=== PATIENT | male | born 1975 | race Caucasian/White ===

== ENCOUNTER → 2016-05-14 | Outpatient (CLI) | payer BC ==
[2016-05-14 14:44] LABS: ALT 43 U/L (21-72); AST 21 U/L (17-59); Alkaline Phosphatase 64 U/L (38-126); Anion Gap 12 mmol/L; Blood Urea Nitrogen 17 mg/dL (9-20); Calcium 9.5 mg/dL (8.4-10.2); Carbon Dioxide 23 mmol/L (22-30); Chloride 106 mmol/L (98-107); Cholesterol 242 mg/dL (<200); Glucose 110 mg/dL (74-99); HDL Cholesterol 37 mg/dL (40-60); Non-African American GFR(MDRD) >60 (>60 ml/min/1.73 sqM); Potassium 4.1 mmol/L (3.5-5.1); Sodium 141 mmol/L (137-145); Total Bilirubin 0.8 mg/dL (0.2-1.3); Total Protein 7.3 g/dL (6.3-8.2); Triglycerides 335 mg/dL (<150)
== END ==
LOC: LABWHC1 13:53
PROVIDERS: ATTEND Internal Medicine Endocrinology, Diabetes & Metabolism
DX: E10.65 Type 1 diabetes mellitus with hyperglycemia (principal)
CPT/HCPCS: 36415; 80053; 80061; 82043; 83519; 84681

== ENCOUNTER → 2016-10-12 | Outpatient (CLI) | payer BC ==
[2016-10-12 07:27] LABS: ALT 65 U/L (21-72); AST 24 U/L (17-59); Alkaline Phosphatase 68 U/L (38-126); Anion Gap 11 mmol/L; Blood Urea Nitrogen 17 mg/dL (9-20); Calcium 9.9 mg/dL (8.4-10.2); Carbon Dioxide 26 mmol/L (22-30); Chloride 102 mmol/L (98-107); Cholesterol 287 mg/dL (<200); Glucose 120 mg/dL (74-99); HDL Cholesterol 41 mg/dL (40-60); Non-African American GFR(MDRD) >60 (>60 ml/min/1.73 sqM); Potassium 4.6 mmol/L (3.5-5.1); Sodium 139 mmol/L (137-145); Total Bilirubin 0.6 mg/dL (0.2-1.3); Total Protein 7.5 g/dL (6.3-8.2)
[2016-10-13 01:17] LABS: Urine Creatinine 211.1 mg/dL
== END | disposition home or self-care (01) ==
LOC: LABWHC1 06:48
PROVIDERS: ATTEND Internal Medicine Endocrinology, Diabetes & Metabolism
DX: E10.65 Type 1 diabetes mellitus with hyperglycemia (principal)
CPT/HCPCS: 36415; 80053; 80061; 82043; 82570

== ENCOUNTER 2017-01-08 20:11 | Emergency (ER) | payer BC, OTHER ==
--- NOTE | 2017-01-08 20:43 | ED ---
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 Started having pain to his left knee yesterday. When he awakened this morning he was tender warm swollen and very painful. Otherwise no fever does not have chills. - Related Data Home Medications Medication Instructions Recorded Confirmed HYDROcodone/APAP 10-325MG [[place] 1 tab PO TID PRN 10/09/15 01/08/17 10-325] Previous Rx's Medication Instructions Recorded INSULIN LISPRO (HumaLOG) [humaLOG] 0 unit SQ ACHS #1 vial 10/10/15 Insulin Glargine [Lantus] 25 unit SQ HS #1 vial 10/10/15 Cephalexin [Keflex] 500 mg PO Q6HR #40 cap 01/08/17 Allergies Allergy/AdvReac Type Severity Reaction Status Date / Time No Known Allergies Allergy Verified 01/08/17 20:17 Review of Systems ROS Statement: Those systems with pertinent positive or pertinent negative responses have been documented in the HPI. review of systems no other complaints other than pain to his left knee. He does have chronic back pain for which takes Moro. All systems reviewed. Past medical problemsHypertension, hyperlipidemia. He surgeries or hernia repair, bilateral eye muscle repair here surgery. Family history not cooperative. No known ALLERGIES. Nonsmoker. Occasional alcohol use. ROS Other: All systems not noted in ROS Statement are negative. Past Medical History Past Medical History: Hyperlipidemia, Hypertension Additional Past Medical History / Comment(s): Pt just found out he has elevated blood sugar., back pain History of Any Multi-Drug Resistant Organisms: None Reported Past Surgical History: Ear Surgery, Hernia Repair Additional Past Surgical History / Comment(s): bilateral eye muscle surgery, bilateral myringotomies with tubes, R inguinal hernia repair. Past Anesthesia/Blood Transfusion Reactions: No Reported Reaction Past Psychological History: No Psychological Hx Reported Smoking Status: Never smoker - Past Family History Father Family Medical History: Hyperlipidemia Additional Family Medical History / Comment(s): Father is 72 yrs old. Mother Family Medical History: COPD Additional Family Medical History / Comment(s): Bladder problems. Mother is 67yrs old. General Exam - General Exam Comments Initial Comments: physical examination of the patient finds; temperature 97.9 ,pulse 93, respiratory rate 18 pulse, ox 97% room, air blood pressure 144/92. Patient's lungs clear to auscultation heart no murmur, abdomen benign. Lower extremities finds left knee has tenderness swelling and warmth. Range of motion is decreased significantly. Pain with varus, valgus and drawer testing. Neurovascular status of foot is intact. Limitations: no limitations Course Vital Signs 01/08/17 20:13 Temperature 97.9 F Pulse Rate 93 Respiratory 18 Rate Blood Pressure 144/92 O2 Sat by Pulse 97 Oximetry Medical Decision Making - Medical Decision Making Medical decision making; x-ray of the left knee was done and reviewed by radiologist and reported findings are there is anterior infrapatellar soft tissue swelling. No significant knee joint effusion. No acute fracture, subluxation or dislocation. Impression anterior infrapatellar soft tissue swelling could relate to soft tissue contusion, cellulitis or other nonspecific edema. No acute osseous abnormality is seen as read by Dr. Lynn The patient will be placed on cephalexin 500 4 times a day. With warm compresses and elevation. Advised to follow-up with family physician if not improving in the next 2-3 days. Advised to use ibuprofen in addition to the pain medication as available which he takes for his bad back. Disposition Clinical Impression: Pain and swelling of left knee Disposition: HOME SELF-CARE Condition: Fair Instructions: Knee Sprain (ED) Additional Instructions: take cephalexin 504 times daily for 10 days. Ice elevate rest your knee. If not improving after 48 hours follow-up with family physician. Continue with Moro for pain as well as ibuprofen 600 for inflammation and breakthrough pain. Prescriptions: Cephalexin [Keflex] 500 mg PO Q6HR #40 cap Referrals: Anjana Mukherjee MD [Primary Care Provider] - 1-2 days Time of Disposition: 21:32
--- NOTE | 2017-01-08 20:57 | XR ---
EXAMINATION TYPE: XR knee complete LT DATE OF EXAM: 01/08/2017 COMPARISON: NONE HISTORY: 41-year-old male with knee pain and swelling TECHNIQUE: 3 views FINDINGS: There is anterior infrapatellar soft tissue swelling. No significant knee joint effusion. No acute fr acture, subluxation, or dislocation. IMPRESSION: Anterior infrapatellar soft tissue swelling could relate to soft tissue contusion, cellulitis, or oth er nonspecific edema. No acute osseous abnormality seen.
[2017-01-08] MEDS ORDERED: CEPHALEXIN 500MG STARTER PACK 4 CAP BTL PO STA (21:29)
[2017-01-08 21:47] VITALS: BP 156/91; PULSE 81; RESP 19; TEMP 100.8
== END 2017-01-08 21:47 | disposition home or self-care (01) ==
LOC: EC 20:11
DX: M25.562 Pain in left knee (principal); M79.89 Other specified soft tissue disorders
CPT/HCPCS: 99284

== ENCOUNTER 2017-01-11 01:01 | Emergency (ER) | payer BC, OTHER ==
[2017-01-11 01:05] VITALS: BP 166/90; PULSE 81; RESP 20; TEMP 98.4
[2017-01-11] MEDS ORDERED: cefTRIAXone 1,000 MG VIAL (IM USE) IM STA (01:15)
[2017-01-11] MEDS ORDERED: SULFAMETHOX-TMP 800-160MG 1 EACH TAB PO STA (01:15)
--- NOTE | 2017-01-11 01:18 | ED ---
General Adult HPI - General Chief complaint: Skin/Abscess/Foreign Body Stated complaint: Knee pain Time Seen by Provider: 01/11/17 01:09 Source: patient, family, RN notes reviewed Mode of arrival: ambulatory Limitations: no limitations - History of Present Illness Initial comments: 41-year-old male presents to the emergency Department chief complaint of left knee redness. Patient has had this for the past 3 days. He came here on Tuesday was started on Keflex. He states been taking it. He noticed the redness has extended down the leg but is not traveling up. He states he is more motion of the needing there are a few days ago. He denies any fever chills. There's been no nausea or vomiting. There is due to the fact that it was still red states that they should be seen.Patient denies any recent fever, chills, shortness of breath, chest pain, back pain, abdominal pain, nausea vomiting, numbness or tingling, dysuria or hematuria, constipation or diarrhea, headaches or visual changes, or any other current symptoms. - Related Data Home Medications Medication Instructions Recorded Confirmed HYDROcodone/APAP 10-325MG [[place] 1 tab PO TID PRN 10/09/15 01/11/17 10-325] Previous Rx's Medication Instructions Recorded INSULIN LISPRO (HumaLOG) [humaLOG] 0 unit SQ ACHS #1 vial 10/10/15 Insulin Glargine [Lantus] 25 unit SQ HS #1 vial 10/10/15 Cephalexin [Keflex] 500 mg PO Q6HR #40 cap 01/08/17 Ibuprofen [Motrin] 800 mg PO Q8H PRN #20 tab 01/08/17 Sulfamethox-Tmp 800-160Mg [Bactrim 2 each PO Q12HR #56 tab 01/11/17 DS 800-160 mg] Allergies Allergy/AdvReac Type Severity Reaction Status Date / Time No Known Allergies Allergy Verified 01/11/17 01:05 Review of Systems ROS Statement: Those systems with pertinent positive or pertinent negative responses have been documented in the HPI. ROS Other: All systems not noted in ROS Statement are negative. Past Medical History Past Medical History: Hyperlipidemia, Hypertension Additional Past Medical History / Comment(s): Pt just found out he has elevated blood sugar., back pain History of Any Multi-Drug Resistant Organisms: None Reported Past Surgical History: Ear Surgery, Hernia Repair Additional Past Surgical History / Comment(s): bilateral eye muscle surgery, bilateral myringotomies with tubes, R inguinal hernia repair. Past Anesthesia/Blood Transfusion Reactions: No Reported Reaction Past Psychological History: No Psychological Hx Reported Smoking Status: Never smoker - Past Family History Father Family Medical History: Hyperlipidemia Additional Family Medical History / Comment(s): Father is 72 yrs old. Mother Family Medical History: COPD Additional Family Medical History / Comment(s): Bladder problems. Mother is 67yrs old. General Exam - General Exam Comments Initial Comments: General: The patient is awake and alert, in no distress, and does not appear acutely ill. Neck: The neck is supple, there is no tenderness. Cardiovascular: There is a regular rate and rhythm. No murmur, rub or gallop is appreciated. Respiratory: Lungs are clear to auscultation, respirations are non-labored, breath sounds are equal. No wheezes, stridor, rales, or rhonchi. Musculoskeletal: Sensation intact with 2+ pulses of left flexion. Frontal motion of left hip left knee and left ankle. Patient does have some mild swelling and erythema over the left knee that extends into the left mid calf. There is full range motion of left knee 5 out of 5 muscle strength testing. No fluctuant area. Minimal induration. No streaking up the leg noted. Neurological: CN II-XII intact, There are no obvious motor or sensory deficits. Coordination appears grossly intact. Speech is normal. Skin: Skin is warm and dry and no rashes or lesions are noted. Psychiatric: Normal mood and affect. Limitations: no limitations Course Vital Signs 01/11/17 01:02 Temperature 98.4 F Pulse Rate 81 Respiratory 20 Rate Blood Pressure 166/90 O2 Sat by Pulse 100 Oximetry Medical Decision Making - Medical Decision Making 41-year-old male presents for left knee cellulitis. At this time it does appear to be mild. Motion has improved and swelling is not worsened. At this time we discussed we will add Bactrim to the patient's regimen as well as give him Rocephin. We discussed follow-up with his doctor in the morning. We discussed this could lead to admission however at this time we will trend additional antibiotic. We did discuss return parameters and all questions. Patient family stated the Hank management this plan. At this time patient will be discharged home. Disposition Clinical Impression: Left leg cellulitis Disposition: HOME SELF-CARE Condition: Stable Instructions: Cellulitis (ED) Additional Instructions: Please use medication as discussed. Please follow up with family doctor if symptoms have not improved over the next two days. Please return to the emergency room if your symptoms increase or worsen or for any other concerns. Prescriptions: Sulfamethox-Tmp 800-160Mg [Bactrim DS 800-160 mg] 2 each PO Q12HR #56 tab Referrals: Anjana Mukherjee MD [Primary Care Provider] - 1-2 days Time of Disposition: 01:18
== END 2017-01-11 01:40 | disposition home or self-care (01) ==
LOC: EC 01:01
DX: L03.116 Cellulitis of left lower limb (principal)
CPT/HCPCS: 99283; 96372; J0696

== ENCOUNTER 2017-03-18 01:27 | Emergency (ER) | payer BC, OTHER ==
[2017-03-18 01:37] VITALS: BP 142/89; PULSE 86; RESP 20; TEMP 97.9
[2017-03-18] MEDS ORDERED: AMOXIC-POT CLAV 875-125MG 1 EACH TAB PO STA (01:52)
--- NOTE | 2017-03-18 01:52 | ED ---
ENT HPI - General Chief complaint: ENT Stated complaint: ear ache Time Seen by Provider: 03/18/17 01:38 Source: patient Mode of arrival: ambulatory Limitations: no limitations - History of Present Illness Initial comments: This is a 41-year-old male who presents to the ED with a chief complaint of ear pain and sinus pressure. The patient began having ear pain about 3 days ago and states that he was recently sick with a fever and flu-like symptoms about 1 week ago. He reports he has been treating the ear pain with peroxide. Today, he states that his face became flushed while at work and he has a headache. The sinus pressure and pain is made worse with bending or leaning forward. - Related Data Home Medications Medication Instructions Recorded Confirmed HYDROcodone/APAP 10-325MG [[place] 1 tab PO TID PRN 10/09/15 01/11/17 10-325] Previous Rx's Medication Instructions Recorded INSULIN LISPRO (HumaLOG) [humaLOG] 0 unit SQ ACHS #1 vial 10/10/15 Insulin Glargine [Lantus] 25 unit SQ HS #1 vial 10/10/15 Cephalexin [Keflex] 500 mg PO Q6HR #40 cap 01/08/17 Ibuprofen [Motrin] 800 mg PO Q8H PRN #20 tab 01/08/17 Sulfamethox-Tmp 800-160Mg [Bactrim 2 each PO Q12HR #56 tab 01/11/17 DS 800-160 mg] Amoxicillin/Potassium Clav 1 tab PO Q12HR #20 tab 03/18/17 [Augmentin 875-125 Tablet] Allergies Allergy/AdvReac Type Severity Reaction Status Date / Time No Known Allergies Allergy Verified 03/18/17 01:35 Review of Systems ROS Statement: Those systems with pertinent positive or pertinent negative responses have been documented in the HPI. ROS Other: All systems not noted in ROS Statement are negative. Past Medical History Past Medical History: Hyperlipidemia, Hypertension Additional Past Medical History / Comment(s): Pt just found out he has elevated blood sugar., back pain History of Any Multi-Drug Resistant Organisms: None Reported Past Surgical History: Ear Surgery, Hernia Repair Additional Past Surgical History / Comment(s): bilateral eye muscle surgery, bilateral myringotomies with tubes, R inguinal hernia repair. Past Anesthesia/Blood Transfusion Reactions: No Reported Reaction Past Psychological History: No Psychological Hx Reported Smoking Status: Never smoker Past Alcohol Use History: None Reported Past Drug Use History: None Reported - Past Family History Father Family Medical History: Hyperlipidemia Additional Family Medical History / Comment(s): Father is 72 yrs old. Mother Family Medical History: COPD Additional Family Medical History / Comment(s): Bladder problems. Mother is 67yrs old. General Exam Limitations: no limitations General appearance: alert, in no apparent distress Head exam: Present: atraumatic, normocephalic, normal inspection Eye exam: Present: normal appearance, PERRL, conjunctival injection. Absent: scleral icterus Pupils: Present: normal accommodation ENT exam: Present: normal oropharynx, mucous membranes moist, other (Ear canals appear erythematous bilaterally. Maxillary sinus is tender to palpation.). Absent: normal exam, TM's normal bilaterally Neck exam: Present: normal inspection, full ROM, lymphadenopathy. Absent: tenderness, meningismus Respiratory exam: Present: normal lung sounds bilaterally. Absent: respiratory distress, wheezes, rales, rhonchi, stridor Cardiovascular Exam: Present: regular rate, normal rhythm, normal heart sounds. Absent: systolic murmur, diastolic murmur, rubs, gallop, clicks Neurological exam: Present: alert, oriented X3, CN II-XII intact Psychiatric exam: Present: normal affect, normal mood Skin exam: Present: warm, dry, intact, normal color. Absent: rash Course Vital Signs 03/18/17 01:29 Temperature 97.9 F Pulse Rate 86 Respiratory 20 Rate Blood Pressure 142/89 O2 Sat by Pulse 98 Oximetry Medical Decision Making - Medical Decision Making 41-year-old male presents for sinus left ear pain. Patient will be to for acute sinusitis and otitis media with Augmentin at this time. Patient is advised take Tylenol Motrin and decongestant as directed. Return parameters were discussed. Disposition Clinical Impression: Acute sinusitis, Otitis media Disposition: HOME SELF-CARE Condition: Stable Instructions: Earache (ED) Additional Instructions: Please return to the Emergency Department if symptoms worsen or any other concerns. Prescriptions: Amoxicillin/Potassium Clav [Augmentin 875-125 Tablet] 1 tab PO Q12HR #20 tab Referrals: Anjana Mukherjee MD [Primary Care Provider] - 1-2 days Time of Disposition: 01:58
== END 2017-03-18 02:07 | disposition home or self-care (01) ==
LOC: EC 01:27
DX: H66.93 Otitis media, unspecified, bilateral (principal); J01.90 Acute sinusitis, unspecified
CPT/HCPCS: 99282

== ENCOUNTER 2017-06-02 20:57 | Emergency (ER) | payer BC, OTHER ==
[2017-06-02 21:22] VITALS: PULSE 80; RESP 18; TEMP 97.4
[2017-06-02] MEDS ORDERED: TOPICAL SKIN ADHESIVE 1 EACH AMP TOPICAL ONE (21:27)
--- NOTE | 2017-06-02 21:51 | XR ---
EXAMINATION TYPE: XR finger RT DATE OF EXAM: 06/02/2017 COMPARISON: NONE HISTORY: Pain third digit injury TECHNIQUE: Three-view right middle finger FINDINGS: There is soft tissue over the proximal digit. No acute fractures evident. Joint spaces are preserved. IMPRESSION: 1. Soft tissue swelling proximal interphalangeal joint space.
--- NOTE | 2017-06-02 22:09 | ED ---
General Adult HPI - General Chief complaint: Wound/Laceration Stated complaint: finger lac Time Seen by Provider: 06/02/17 21:22 Source: patient, RN notes reviewed Mode of arrival: ambulatory Limitations: no limitations - History of Present Illness Initial comments: 41-year-old male presents to the emergency department for chief complaint of laceration to the middle finger of the right hand. Patient states he was pulling out a dresser drawer when the drawer came out all the way and he went to catch it. Patient states that caused him to cut his middle finger somehow on the drawer. Patient states he is up-to-date on his tetanus. Patient denies pain in the finger and states he can move all digits of the finger. Patient denies any other injuries or hitting his head. Patient denies any other complaints at this time including shortness of breath, chest pain, abdominal pain, nausea or vomiting. - Related Data Home Medications Medication Instructions Recorded Confirmed HYDROcodone/APAP 10-325MG [[place] 1 tab PO TID PRN 10/09/15 06/02/17 10-325] Previous Rx's Medication Instructions Recorded INSULIN LISPRO (HumaLOG) [humaLOG] 0 unit SQ ACHS #1 vial 10/10/15 Insulin Glargine [Lantus] 25 unit SQ HS #1 vial 10/10/15 Ibuprofen [Motrin] 800 mg PO Q8H PRN #20 tab 01/08/17 Allergies Allergy/AdvReac Type Severity Reaction Status Date / Time No Known Allergies Allergy Verified 06/02/17 21:22 Review of Systems ROS Statement: Those systems with pertinent positive or pertinent negative responses have been documented in the HPI. ROS Other: All systems not noted in ROS Statement are negative. Past Medical History Past Medical History: Diabetes Mellitus, Hyperlipidemia, Hypertension Additional Past Medical History / Comment(s): back pain History of Any Multi-Drug Resistant Organisms: None Reported Past Surgical History: Ear Surgery, Hernia Repair Additional Past Surgical History / Comment(s): bilateral eye muscle surgery, bilateral myringotomies with tubes, R inguinal hernia repair. Past Anesthesia/Blood Transfusion Reactions: No Reported Reaction Past Psychological History: No Psychological Hx Reported Smoking Status: Never smoker Past Alcohol Use History: None Reported Past Drug Use History: None Reported - Past Family History Father Family Medical History: Hyperlipidemia Additional Family Medical History / Comment(s): Father is 72 yrs old. Mother Family Medical History: COPD Additional Family Medical History / Comment(s): Bladder problems. Mother is 67yrs old. General Exam Limitations: no limitations General appearance: alert, in no apparent distress Respiratory exam: Present: normal lung sounds bilaterally. Absent: respiratory distress, wheezes, rales, rhonchi, stridor Cardiovascular Exam: Present: regular rate, normal rhythm, normal heart sounds. Absent: systolic murmur, diastolic murmur, rubs, gallop, clicks Extremities exam: Present: full ROM (Full range of motion of all digits in the right hand as well as the right wrist), normal capillary refill (Refill less than 2 seconds in the third digit of the right hand. Radial pulse 2+), other ( There is a shallow 1.5 cm laceration to the lateral distal phalanx of the third digit on the right hand. No swelling or ecchymosis.). Absent: tenderness, joint swelling Neurological exam: Present: alert, oriented X3 Psychiatric exam: Present: normal affect, normal mood Course Vital Signs 06/02/17 21:18 Temperature 97.4 F L Pulse Rate 80 Respiratory 18 Rate Blood Pressure 157/105 O2 Sat by Pulse 97 Oximetry Medical Decision Making - Medical Decision Making 41-year-old male presents to the emergency department for chief complaint of laceration to the third digit of the right hand. Patient states this happened about an hour ago when he cut it on a dresser drawer. Patient has no pain in the finger and has full range of motion. On exam there is no ecchymosis or swelling. Patient has full range of motion of the right digit as well as the rest of the right hand and wrist. Neurovascular intact. X-ray obtained shows no acute fractures or dislocations. Patient's wound was very shallow and about 1.5 cm in length. Dermabond was used to close the wound. He was educated to return if he notices any signs of infection and to follow up with primary care in 1-2 days. Disposition Clinical Impression: Laceration Disposition: HOME SELF-CARE Condition: Good Instructions: Laceration (ED), Skin Adhesive Care (ED) Additional Instructions: Please return to the emergency department if you have any worsening symptoms or signs of infection. Otherwise follow-up with primary care in 1-2 days. Is patient prescribed a controlled substance at d/c from ED?: No Referrals: Bazo,Charbal B, MD [Primary Care Provider] - 1-2 days Time of Disposition: 22:08
[2017-06-02 22:14] VITALS: BP 147/90
== END 2017-06-02 22:17 | disposition home or self-care (01) ==
LOC: EC 20:57
DX: S61.212A Laceration without foreign body of right middle finger without damage to nail, initial encounter (principal); W45.8XXA Other foreign body or object entering through skin, initial encounter
CPT/HCPCS: 12001; 99283

== ENCOUNTER → 2017-10-25 | Outpatient (CLI) | payer BC ==
[2017-10-25 15:39] LABS: ALT 105 U/L (21-72); AST 44 U/L (17-59); Albumin 4.8 g/dL (3.5-5.0); Alkaline Phosphatase 66 U/L (38-126); Anion Gap 9 mmol/L; Blood Urea Nitrogen 16 mg/dL (9-20); Calcium 9.4 mg/dL (8.4-10.2); Carbon Dioxide 27 mmol/L (22-30); Chloride 103 mmol/L (98-107); Cholesterol 207 mg/dL (<200); Glucose 148 mg/dL (74-99); HDL Cholesterol 44 mg/dL (40-60); LDL Cholesterol,Calculated 124 mg/dL (0-99); Potassium 5.1 mmol/L (3.5-5.1); Sodium 139 mmol/L (137-145); Total Bilirubin 0.7 mg/dL (0.2-1.3); Total Protein 7.4 g/dL (6.3-8.2); Triglycerides 196 mg/dL (<150)
[2017-10-25 19:56] LABS: Hemoglobin A1C 7.7 % (4.0-6.0)
== END | disposition home or self-care (01) ==
LOC: LABWHC1 14:51
PROVIDERS: ATTEND Internal Medicine Endocrinology, Diabetes & Metabolism
DX: E10.65 Type 1 diabetes mellitus with hyperglycemia (principal)
CPT/HCPCS: 36415; 80053; 80061; 82043; 82570; 83036; 84443

== ENCOUNTER → 2018-05-16 | Outpatient (CLI) | payer BC, OTHER ==
[2018-05-16 17:09] LABS: ALT 69 U/L (10-49); AST 32 U/L (14-35); Albumin/Globulin Ratio 2.58 (1.60-3.17); Alkaline Phosphatase 58 U/L (41-126); Calcium 9.8 mg/dL (8.7-10.3); Carbon Dioxide 23.3 mmol/L (21.6-31.8); Chloride 104 mmol/L (96-109); Cholesterol 301 mg/dL (0-200); Globulin 1.9 g/dL (1.6-3.3); Glucose 121 mg/dL (70-110); Potassium 4.3 mmol/L (3.5-5.5); Sodium 138 mmol/L (135-145); Total Bilirubin 0.5 mg/dL (0.3-1.2); Total Protein 6.8 g/dL (6.2-8.2)
== END ==
LOC: LABWHC1 09:10
PROVIDERS: ATTEND Internal Medicine Endocrinology, Diabetes & Metabolism
DX: E10.65 Type 1 diabetes mellitus with hyperglycemia (principal)
CPT/HCPCS: 36415; 80053; 80061; 82043; 82570; 83036; 83721; 84443

== ENCOUNTER → 2021-06-08 | Outpatient (CLI) | payer BC, OTHER ==
[2021-06-08 23:47] LABS: ALT 33 U/L (10-49); AST 16 U/L (14-35); African American GFR (CKD) 120.1 (60.0-200.0); Albumin 4.5 g/dL (3.8-4.9); Albumin/Globulin Ratio 2.02 (1.60-3.17); Alkaline Phosphatase 51 U/L (41-126); BUN/Creat Ratio 21.29 Ratio (12.00-20.00); Blood Urea Nitrogen 18.8 mg/dL (9.0-27.0); Calcium 9.2 mg/dL (8.7-10.3); Carbon Dioxide 22.1 mmol/L (20.0-27.5); Chloride 103 mmol/L (96-109); Chol/HDL Ratio 5.95 Ratio; Globulin 2.2 g/dL (1.6-3.3); Glucose 167 mg/dL (70-110); LDL Cholesterol,Calculated 131.2 mg/dL (0.0-131.0); Non-African American GFR(CKD) 103.6 (60.0-200.0); Potassium 3.9 mmol/L (3.5-5.5); Sodium 136 mmol/L (135-145); Total Protein 6.7 g/dL (6.2-8.2)
[2021-06-09 07:44] LABS: Microalbumin Creatinine Ratio <30 mg/g Creat (0-30)
== END | disposition home or self-care (01) ==
LOC: LABWHC1 08:08
PROVIDERS: ATTEND Internal Medicine Endocrinology, Diabetes & Metabolism
DX: E10.65 Type 1 diabetes mellitus with hyperglycemia (principal)
CPT/HCPCS: 36415; 80053; 80061; 82043; 82570; 83036; 84443

== ENCOUNTER → 2021-10-12 | Outpatient (CLI) | payer BC, OTHER ==
[2021-10-12 18:59] LABS: ALT 41 U/L (10-49); AST 20 U/L (14-35); African American GFR (CKD) 119.1 (60.0-200.0); Albumin 4.8 g/dL (3.8-4.9); Albumin/Globulin Ratio 2.53 (1.60-3.17); Alkaline Phosphatase 64 U/L (41-126); Blood Urea Nitrogen 14.4 mg/dL (9.0-27.0); Calcium 9.4 mg/dL (8.7-10.3); Carbon Dioxide 23.2 mmol/L (20.0-27.5); Chloride 103 mmol/L (96-109); Globulin 1.9 g/dL (1.6-3.3); Glucose 164 mg/dL (70-110); LDL Cholesterol,Calculated 121.9 mg/dL (0.0-131.0); Non-African American GFR(CKD) 102.8 (60.0-200.0); Potassium 4.7 mmol/L (3.5-5.5); Sodium 138 mmol/L (135-145); Total Protein 6.7 g/dL (6.2-8.2)
[2021-10-12 23:16] LABS: Microalbumin Creatinine Ratio <30 mg/g Creat (0-30); Urine Creatinine 68.8 mg/dL (39.0-259.0)
== END | disposition home or self-care (01) ==
LOC: LABWHC1 10:58
PROVIDERS: ATTEND Internal Medicine Endocrinology, Diabetes & Metabolism
DX: E10.65 Type 1 diabetes mellitus with hyperglycemia (principal)
CPT/HCPCS: 36415; 80053; 80061; 82043; 82570; 83036; 84443

== ENCOUNTER → 2022-07-10 | Outpatient (CLI) | payer OTHER ==
--- NOTE | 2022-07-10 13:23 | XR ---
EXAMINATION TYPE: XR lumbosacral spine min 4V DATE OF EXAM: 07/10/2022 CLINICAL HISTORY: Low back pain TECHNIQUE: Frontal, lateral, and oblique images of the lumbar spine are obtained. COMPARISON: Prior lumbar spine x-ray November 05, 2015 FINDINGS: There are 5 lumbar type vertebral bodies redemonstrated. The lumbar spine shows stable sl ight levoconvex scoliotic curvature without evidence of acute fracture or dislocation. Vertebral body heights and disk space heights remain within normal limits. The oblique images appear within miguelina l limits. The overlying soft tissue appears unremarkable. IMPRESSION: As above. No significant change from prior.
== END | disposition home or self-care (01) ==
LOC: RADXRMAIN 09:56
PROVIDERS: ATTEND Physical Medicine & Rehabilitation
DX: M54.50 Low back pain, unspecified (principal)
CPT/HCPCS: 72110

== ENCOUNTER 2022-12-07 01:13 | Emergency (ER) | payer OTHER ==
[2022-12-07 01:22] VITALS: BP 135/96; PULSE 90; RESP 16; TEMP 97.6
[2022-12-07] MEDS ORDERED: AMOXIC-POT CLAV 875-125MG 1 EACH TAB PO STA (01:26)
--- NOTE | 2022-12-07 01:27 | ED ---
Animal Bite HPI - General Chief Complaint: Animal Bite Stated Complaint: Dog bite Time Seen by Provider: 12/07/22 01:19 Source: patient Mode of arrival: ambulatory Limitations: no limitations - History of Present Illness Initial Comments: 46-year-old male presenting with chief complaint of dog bite. Patient states that his 2 dogs were fighting and when he went to separate them he was spit on the bilateral arms. Patient has several puncture wounds. His last tetanus was last year. Patient declines rabies vaccination, no concern for rabies with his pets. No numbness, tingling, weakness. Full range of motion to the arms. - Related Data Home Medications Medication Instructions Recorded Confirmed HYDROcodone/APAP 10-325MG [[place] 1 tab PO TID PRN 10/09/15 06/02/17 10-325] Previous Rx's Medication Instructions Recorded INSULIN LISPRO (HumaLOG) [humaLOG] 0 unit SQ ACHS #1 vial 10/10/15 Insulin Glargine [Lantus Vial] 25 unit SQ HS #1 vial 10/10/15 Ibuprofen [Motrin] 800 mg PO Q8H PRN #20 tab 01/08/17 Amoxic-Pot Clav 875-125Mg 1 tab PO Q12HR 10 Days #20 tab 12/07/22 [Augmentin 875-125] Allergies Allergy/AdvReac Type Severity Reaction Status Date / Time No Known Allergies Allergy Verified 12/07/22 01:18 Review of Systems ROS Statement: Those systems with pertinent positive or pertinent negative responses have been documented in the HPI. ROS Other: All systems not noted in ROS Statement are negative. Past Medical History Past Medical History: Diabetes Mellitus, Hyperlipidemia, Hypertension Additional Past Medical History / Comment(s): back pain History of Any Multi-Drug Resistant Organisms: None Reported Past Surgical History: Ear Surgery, Hernia Repair Additional Past Surgical History / Comment(s): bilateral eye muscle surgery, bilateral myringotomies with tubes, R inguinal hernia repair. Past Anesthesia/Blood Transfusion Reactions: No Reported Reaction Past Psychological History: No Psychological Hx Reported Smoking Status: Never smoker Past Alcohol Use History: Occasional Past Drug Use History: None Reported - Past Family History Father Family Medical History: Hyperlipidemia Additional Family Medical History / Comment(s): Father is 72 yrs old. Mother Family Medical History: COPD Additional Family Medical History / Comment(s): Bladder problems. Mother is 67yrs old. General Exam Limitations: no limitations General appearance: alert, in no apparent distress Head exam: Present: atraumatic, normocephalic, normal inspection Eye exam: Present: normal appearance, EOMI Neck exam: Present: normal inspection, full ROM Respiratory exam: Absent: respiratory distress Neurological exam: Present: alert, oriented X3 Psychiatric exam: Present: normal affect, normal mood Expanded Type of lesion: Present: laceration (Multiple puncture wounds to the bilateral arms due to dog bites) Course Vital Signs 12/07/22 01:15 Temperature 97.6 F Pulse Rate 90 Respiratory 16 Rate Blood Pressure 135/96 O2 Sat by Pulse 97 Oximetry Medical Decision Making - Medical Decision Making Was pt. sent in by a medical professional or institution (, PA, [employer], urgent care, hospital, or intermediate...) When possible be specific @ -[No] Did you speak to anyone other than the patient for history (EMS, parent, family, police, friend...)? What history was obtained from this source @ -[No] Did you review nursing and triage notes (agree or disagree)? Why? @ -[I reviewed and agree with nursing and triage notes] Were old charts reviewed (outside hosp., previous admission, EMS record, old EKG, old radiological studies, urgent care reports/EKG's, intermediate records)? Report findings @ -[No old charts were reviewed] Differential Diagnosis (chest pain, altered mental status, abdominal pain women, abdominal pain men, vaginal bleeding, weakness, fever, dyspnea, syncope, headache, dizziness, GI bleed, back pain, seizure, CVA, palpatations, mental health, musculoskeletal)? @ -[not applicable] EKG interpreted by me (3pts min.). @ -[As above] X-rays interpreted by me (1pt min.). @ -[None done] CT interpreted by me (1pt min.). @ -[None done] U/S interpreted by me (1pt. min.). @ -[None done] What testing was considered but not performed or refused? (CT, X-rays, U/S, labs)? Why? @ -[None] What meds were considered but not given or refused? Why? @ -[None] Did you discuss the management of the patient with other professionals (professionals i.e. , PA, [employer], lab, RT, psych nurse, social work instructor, medical translator, teacher, systems support officer, casework specialist)? Give summary @ -[No] Was smoking cessation discussed for >3mins.? @ -[No] Was critical care preformed (if so, how long)? @ -[No] Were there social determinants of health that impacted care today? How? (Homelessness, low income, unemployed, alcoholism, drug addiction, transportation, low edu. Level, literacy, decrease access to med. care, penitentiary, rehab)? @ -[No] Was there de-escalation of care discussed even if they declined (Discuss DNR or withdrawal of care, Hospice)? DNR status @ -[No] What co-morbidities impacted this encounter? (DM, HTN, Smoking, COPD, CAD, Cancer, CVA, ARF, Chemo, Hep., AIDS, mental health diagnosis, sleep apnea, morbid obesity)? @ -[None] Was patient admitted / discharged? Hospital course, mention meds given and route, prescriptions, significant lab abnormalities, going to OR and other pertinent info. @ -46-year-old male presenting with chief complaint of dog bite. Patient his 2 dogs that were fighting. His tetanus is up-to-date. Wounds are irrigated. Patient is started on Augmentin. Declining rabies vaccination. Educated on wound care and signs of infection. Follow-up with PCP. Report back to ER with any new or worsening symptoms. Discussed return parameters and answered all questions. Patient conveyed verbal understanding and agreed to the plan. I discussed this case in detail with my attending Dr. Kim Undiagnosed new problem with uncertain prognosis? @ -[No] Drug Therapy requiring intensive monitoring for toxicity (Heparin, Nitro, Insulin, Cardizem)? @ -[No] Were any procedures done? @ -[No] Diagnosis/symptom? @ -Dog bite Acute, or Chronic, or Acute on Chronic? @ -Acute Uncomplicated (without systemic symptoms) or Complicated (systemic symptoms)? @ -Uncomplicated Side effects of treatment? @ -[No] Exacerbation, Progression, or Severe Exacerbation? @ -[No] Poses a threat to life or bodily function? How? (Chest pain, [place], [place], pneumonia, PE, COPD, DKA, ARF, appy, cholecystitis, CVA, Diverticulitis, Homicidal, Suicidal, threat to staff... and all critical care pts) @ -[No] Disposition Clinical Impression: Dog bite Disposition: HOME SELF-CARE Condition: Good Instructions (If sedation given, give patient instructions): Animal Bite (ED) Additional Instructions: Follow-up with PCP. Report back to ER with any new or worsening symptoms. Take medication as prescribed. Wash daily with soap and water. Prescriptions: Amoxic-Pot Clav 875-125Mg [Augmentin 875-125] 1 tab PO Q12HR 10 Days #20 tab Is patient prescribed a controlled substance at d/c from ED?: No Referrals: Domi Mae DO [Primary Care Provider] - 1-2 days
== END 2022-12-07 02:08 | disposition home or self-care (01) ==
LOC: EC 01:13
DX: S41.152A Open bite of left upper arm, initial encounter (principal); S41.151A Open bite of right upper arm, initial encounter; E11.9 Type 2 diabetes mellitus without complications; I10 Essential (primary) hypertension; W54.0XXA Bitten by dog, initial encounter
CPT/HCPCS: 99283